=== PATIENT | female | born 2005 | race Two or more races ===

== ENCOUNTER 2025-09-10 02:43 | Emergency (ER) | payer MEDICAID, OTHER ==
[~2025-09-10] VITALS: Ht 157.5 cm; Wt 51.0 kg
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
[2025-09-10 05:00] VITALS: BP 92/61; PULSE 68; RESP 20; TEMP 98.3; O2SAT 100
== END 2025-09-10 05:06 | disposition home or self-care (01) ==
LOC: EDBD 02:43 → ER 02:43
DX: O9A.211 Injury, poisoning and certain other consequences of external causes complicating pregnancy, first trimester (principal); S13.4XXA Sprain of ligaments of cervical spine, initial encounter; S20.219A Contusion of unspecified front wall of thorax, initial encounter; Z3A.08 8 weeks gestation of pregnancy; V48.5XXA Car driver injured in noncollision transport accident in traffic accident, initial encounter; Y93.89 Activity, other specified; Y92.488 Other paved roadways as the place of occurrence of the external cause; Y99.8 Other external cause status